=== PATIENT | female | born 1980 | race Hispanic/Latino ===

== ENCOUNTER → 2023-10-02 | Emergency (ER) | payer OTHER ==
--- OUTSIDE RECORDS SUMMARY | 2023-10-02 12:19 | XMS REPORT | Clinical Summary ---
Author Name Unknown Organization [facility] Address [address] [place] [address] Care Team Providers Care Employment Advisor Name Role Phone Chelsea Cooney MD Unavailable [phone] Stephany Montano MD Primary Care Prov ider Jerrell-IhMelonie ruiz MD Unavailable [phone] Glenn Callaway MD Unavailable [phone] Naty Morgan MD Unavailable [phone] Abdulaziz Romo MD Unavailable Allergies Active Allergy Reactions Criticality Noted Date Comments Adhesive 07/12/2021 Do not use silk tape Paper tape causes skin tears tegaderm ok Amoxicillin Hives 05/24/2021 Fluconazole Other (See Comments) Medium 06/22/2021 Caused skin to slough from fingers after blisters developed Latex, Natural Rubber Rash Low 10/18/2021 Sulfa (Sulfonamide Antibiotics) Hives 05/24/2021 Medications Medication Sig Dispensed Refills Start Date End Date Status esomeprazole (NexIUM) 20 MG capsule Take 1 capsule (20 mg) by mouth. 0 Active cetirizine (ZyrTEC) 10 mg tablet daily. 0 Active linaCLOtide (Linzess) 290 mcg cap Take 290 mcg by mouth 2 (two) times a week MTH. 0 Active letrozole (Femara) 2.5 mg tabletIndication s:Infiltrating duct carcinoma, NOS of central portion of breast <Female; Left> Take 1 tablet (2.5 mg) by mouth every evening. 90 tablet 3 3 Active ALPRAZolam (XANAX) 0.5 mg tablet Take 1 tablet (0.5 mg) by mouth as needed. 0 Active Lactobacillus acidophilus (PROBIOTIC ORAL) Take 1 tablet by mouth daily. 0 Active doxycycline (VIBRAMYCIN) 100 mg tabletIndication s:Bilateral acquired absence of breast Take 1 tablet (100 mg) by mouth twice daily. 10 tablet 0 3 Active oxyCODONE-acetam inophen (Percocet) 5 mg-325 mg per tabletIndication s:Acquired absence of bilateral breasts and nipples Take 1 tablet by mouth every 8 (eight) hours as needed for severe pain. 40 tablet 0 3 Active celecoxib (CeleBREX) 100 mg capsuleIndicatio ns:Pain associated with breast implant <Initial> Take 1 capsule (100 mg) by mouth twice daily. 30 capsule 0 3 Active gabapentin (NEURONTIN) 300 mg capsuleIndicatio ns:Pain associated with breast implant <Initial> Take 1 capsule (300 mg) by mouth twice daily. 30 capsule 0 3 Active Additional Information Patient not taking.Reason: No longer taking, Reported on 03/27/2023 mupirocin (BACTROBAN) 2% ointmentIndicati ons:Acquired absence of bilateral breasts and nipples Apply topically to affected area(s) twice daily. Apply to surgical incision(s) bid x 5 days. 22 g 0 3 Active doxepin 6 mg tab Take 1 tablet by mouth nightly as needed (sleeping). 0 4 Active atorvastatin (LIPITOR) 10 mg tablet Take 1 tablet (10 mg) by mouth at bedtime. 0 3 Active Ozempic 0.25 mg or 0.5 mg (2 mg/3 mL) pnij Inject 0.5 mg under the skin once a week. 0 4 Active acetaminophen-co deine (TYLENOL #3) 300 mg-30 mg tabletIndication s:Infiltrating duct carcinoma, NOS of central portion of breast <Female; Left>,Fatigue Take 1 tablet by mouth 3 (three) times a day as needed for mild pain. 30 tablet 0 4 Active Lactobacillus acidophilus (PROBIOTIC ORAL) Take by mouth daily. 0 12/21/19 Discontinued(The rapy completed) psyllium, aspartame, (METAMUCIL) 3.4 g packet Take by mouth daily. 0 11/07/19 23 Discontinued ondansetron (ZOFRAN) 8 mg tabletIndication s:Infiltrating duct carcinoma, NOS of central portion of breast <Female; Left> Take 0.5 tablets (4 mg) by mouth every 6 (six) hours as needed for nausea or vomiting. 40 tablet 1 2 11/07/19 Discontinued zolpidem (AMBIEN) 5 mg tablet Take 1 tablet (5 mg) by mouth nightly as needed. 0 09/19/19 24 Discontinued(Oth er/Not Applicable) prochlorperazine (Compazine) 10 mg tabletIndication s:Infiltrating duct carcinoma, NOS of central portion of breast <Female; Left> Take 1 tablet (10 mg) by mouth every 8 (eight) hours. 60 tablet 1 2 11/07/19 Discontinued venlafaxine (Effexor XR) 37.5 mg 24 hr capsuleIndicatio ns:Infiltrating duct carcinoma, NOS of central portion of breast <Female; Left> Take 1 capsule (37.5 mg) by mouth every morning. 30 capsule 2 2 11/07/19 Discontinued tamoxifen (NOLVADEX) 20 mg tabletIndication s:Infiltrating duct carcinoma, NOS of central portion of breast <Female; Left> Take 1 tablet (20 mg) by mouth daily. 90 tablet 3 2 02/01/20 23 Discontinued baclofen (LIORESAL) 10 mg tabletIndication s:Chronic pain Take 1 tablet (10 mg) by mouth every 8 (eight) hours as needed for muscle spasms (pain). 60 tablet 0 2 11/07/19 Discontinued celecoxib (CeleBREX) 100 mg capsuleIndicatio ns:Chronic pain Take 1 capsule (100 mg) by mouth twice daily. 20 capsule 0 2 11/07/19 23 Discontinued gabapentin (NEURONTIN) 400 mg capsule as needed. 0 3 02/28/20 23 Discontinued(Reo rder) baclofen (LIORESAL) 10 mg tablet as needed. 0 3 02/28/20 23 Discontinued(Not Applicable) cloNIDine (CATAPRES-TTS) 0.1 mg/24 hr transdermal patch 0 3 02/28/20 23 Discontinued(Not Applicable) acetaminophen-co deine (Tylenol-Codeine #3) 300 mg-30 mg tabletIndication s:Bilateral acquired absence of breast Take 1 tablet by mouth 3 (three) times a day as needed for moderate pain. 10 tablet 0 3 02/28/20 23 Discontinued(The rapy completed) oxyCODONE-acetam inophen (Percocet) 5 mg-325 mg per tabletIndication s:Acquired absence of bilateral breasts and nipples Take 1 tablet by mouth every 6 (six) hours as needed for severe pain. 2 tablet 0 3 02/28/20 23 Discontinued(Reo rder) Active Problems Problem Noted Date Diagnosed Date Dehiscence of external surgical incision wound 0 10/16/2021 Overview: Added automatically from request for surgery [id number] Bilateral acquired absence of breast 08/17/2021 Tobacco dependence syndrome 06/17/2021 Adjustment disorder with anxiety 06/15/2021 Infiltrating duct carcinoma of central 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 05/24/2021 Cancer Staging:Clinical stage from 06/07/2021:Stage IIA(cT3, cN0, cM0, G1, ER+, WA+, HER2-) - Signed by Stephany Montano MD on 07/23/2021 Pathologic stage from 07/23/2021:Stage IA(pT1a, pN0, cM0, G2, ER+, WA+, HER2-) - Unsigned Encounters Date Type Department Care Team Description 09/19/2023 12:20 PM PREVENTIVE MAINTENANCE ENGINEER Follow-Up MD Monique in [place] - Breast Medical Oncology [facility] [address] [place] [id number] Henok Azar APRN Nwosu-Melonie Bahena MD Infiltrating duct carcinoma of central 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 (Primary Dx); Fatigue 09/19/2023 Travel 06/20/2023 8:30 AM CDT Clinical Support [facility] 0 [facility], Floor 7 [place] [address] Glenn Callaway MD Jones, Alemayehu T, LAc Menopausal flushing (Primary Dx); Post-mastectomy pain; Other fatigue; Adjustment disorder with anxiety; Peripheral neuralgia 06/20/2023 Travel 06/11/2023 11:00 AM CDT Telemedicine [facility] [address] [place] [address], [facility] 7 [place] [address] Glenn Callaway MD Post-mastectomy pain (Primary Dx); Headache, not otherwise specified; Menopausal flushing; Other fatigue; Adjustment disorder with anxiety; Peripheral neuralgia 06/10/2023 [facility] [address] [place] [address], [facility] 7 [place] [address] Payal Alfonso RN 03/27/2023 8:00 AM CDT Office [facility] [address] [place] [address], 5th [place] [address] Jeffery Saldana MD Bilateral acquired absence of breast 03/27/2023 Travel 02/28/2023 Orders Only [facility] [address] [place] [address], 5th [place] [address] Yasmin Nguyen PA Acquired absence of bilateral breasts and nipples (Primary Dx) 02/27/2023 12:00 PM CDT Follow-Up MD Monique in [place] - Pain Medicine [facility] [address] [place] [address] Be Boo MD Pain associated with breast implant <Initial> (Primary Dx); Chronic pain; Acquired absence of bilateral breasts and nipples 02/27/2023 Travel 02/26/2023 10:15 AM CDT Anesthesia Event MAIN OR [address] [place] [address] Nicole Chung MD 02/26/2023 10:00 AM CDT - 02/26/2023 2:00 PM CDT Surgery MAIN OR [address] [place] [address] Jeffery Saldana MD REVISION OF RECONSTRUCTED BREAST 02/26/2023 7:50 AM CDT - 02/26/2023 3:32 PM CDT Hospital Encounter MAIN OR [address] [place] [address] Jeffery Saldana MD Bilateral acquired absence of breast (Primary Dx) Discharge Disposition: Home 02/26/2023 Orders Only [facility] [address] [place] [address], 5th [place] [address] Alex Dykes MD Acquired absence of bilateral breasts and nipples (Primary Dx) 02/26/2023 Travel 02/25/2023 11:59 PM CDT Anesthesia Event [facility] [address] [place] [address], [address] [place] [address] Trevin Fletcher II, UTILITY AGENT 02/25/2023 4:30 PM CDT POEM Appointments [facility] [address] [place] [address], [address] [place], [place] [address] [address] Yasmin Nguyen PA Pre operative laboratory examination (Primary Dx); Bilateral acquired absence of breast 02/25/2023 10:03 AM CDT - 02/25/2023 11:59 PM CDT Hospital Encounter [facility] [address] [place] [address] Yasmin Nguyen PA Bilateral acquired absence of breast; Pre operative laboratory examination Discharge Disposition: Home 02/25/2023 9:15 AM CDT Office Visit [facility] [address] [place] [address], 5th [place] [address] Jeffery Saldana MD Bilateral acquired absence of breast 02/25/2023 Travel 02/24/2023 Orders Only MD Monique in [place] - Pain Medicine [address] [facility] [address] [place] [address] Pomer, 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 May, asbestos 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 pain (Primary Dx) 01/31/2023 8:40 AM CDT Follow-Up MD [facility] in [facility] Breast Medical Oncology [address] [place] [address] Melonie Ferrer MD Infiltrating duct carcinoma of central 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 (Primary Dx); Headache, not otherwise specified 01/31/2023 8:00 AM CDT Follow-Up MD Monique in [place] - Breast Surgery Oncology [address] [place] [address] Stephany Montano MD Infiltrating duct carcinoma, NOS of central portion of breast <Female; Left> 01/31/2023 Travel 01/30/2023 Orders Only MD Monique in [facility] Oncology [address] [place] [address] Henok Azar APRN 12/20/2022 8:40 AM CDT Follow-Up MD Monique in [facility] Oncology [address] [place] [address] Melonie Ferrer MD Infiltrating duct carcinoma, NOS of central portion of breast <Female; Left> (Primary Dx); Menopausal flushing 12/20/2022 Travel 11/07/2022 8:15 AM PREVENTIVE MAINTENANCE ENGINEER Follow-Up [facility] [address] [place] [address], 5th [place] [address] Jeffery Saldana MD Acquired absence of bilateral breasts and nipples 11/07/2022 Prep for Surgery [facility] [address] [place] [address], 5th [place] [address] Yasmin Nguyen PA Bilateral acquired absence of breast (Primary Dx) 11/07/2022 Travel after 10/02/2022 Surgical History Surgery Date Site/Laterality Comments HYSTERECTOMY 09/08/2015 - 09/07/2016 COLONOSCOPY BREAST CYST EXCISION Left FINGER SURGERY 09/08/2005 - 09/07/2006 Right Right ring finger WA MASTECTOMY SIMPLE COMPLETE 07/12/2021 Bilateral Procedure: SKIN SPARING TOTAL MASTECTOMY; Surgeon: Stephany Montano MD; Location: MAIN OR; Service: BREAST Medical devices from this surgery are in the Medical Devices section. WA INTRAOP SENTINEL LYMPH NODE ID W/DYE INJECTION 07/12/2021 Left Procedure: INTRAOPERATIVE LYMPHATIC MAPPING; Surgeon: Stephany Montano MD; Location: MAIN OR; Service: BREAST Medical devices from this surgery are in the Medical Devices section. WA BX/EXC LYMPH NODE OPEN DEEP AXILLARY NODE 07/12/2021 Axilla/Left Procedure: SENTINEL NODE BIOPSY - AXILLA; Surgeon: Stephany Montano MD; Location: MAIN OR; Service: BREAST Medical devices from this surgery are in the Medical Devices section. WA TISSUE HEARING AID ASSEMBLY SUPERVISOR PLACEMENT BREAST RECONSTRUCTION 07/12/2021 Breast/Bilateral Procedure: RECONSTRUCTION OF BREAST WITH TISSUE HEARING AID ASSEMBLY SUPERVISOR; Surgeon: Abdulaziz Romo MD; Location: MAIN OR; Service: PLS - PLASTIC SURGERY Medical devices from this surgery are in the Medical Devices section. WA IMPLNT BIO IMPLNT FOR SOFT TISSUE REINFORCEMENT 07/12/2021 Breast/Bilateral Procedure: IMPLANTATION OF BIOLOGIC IMPLANT (EG, ACELLULAR DERMAL MATRIX) FOR SOFT TISSUE REINFORCEMENT; Surgeon: Abdulaziz Romo MD; Location: MAIN OR; Service: PLS - PLASTIC SURGERY Medical devices from this surgery are in the Medical Devices section. MASTECTOMY Bilateral WA BREAST RECONSTRUCTION W/FREE FLAP 10/18/2021 Abdomen/Bilateral Procedure: RECONSTRUCTION OF BREAST WITH FREE FLAP; Surgeon: Jeffery Saldana MD; Location: MAIN OR; Service: PLS - PLASTIC SURGERY Medical devices from this surgery are in the Medical Devices section. WA REMOVAL TISSUE HEARING AID ASSEMBLY SUPERVISOR W/O INSERTION IMPLANT 10/18/2021 Breast/Bilateral Procedure: REMOVAL OF TISSUE HEARING AID ASSEMBLY SUPERVISOR; Surgeon: Jeffery Saldana MD; Location: MAIN OR; Service: PLS - PLASTIC SURGERY Medical devices from this surgery are in the Medical Devices section. WA NEGATIVE PRESSURE WOUND THERAPY DME <= 50 SQ CM 10/18/2021 Abdomen/N/A Procedure: NEGATIVE PRESSURE WOUND THERAPY (WOUND VAC); Surgeon: Jeffery Saldana MD; Location: MAIN OR; Service: PLS - PLASTIC SURGERY Medical devices from this surgery are in the Medical Devices section. OOPHORECTOMY BILATERAL 05/30/2022 WA REVISION OF RECONSTRUCTED BREAST 06/28/2022 Breast/Right Procedure: REVISION OF RECONSTRUCTED BREAST; Surgeon: Jeffery Saldana MD; Location: MAIN OR; Service: PLS - PLASTIC SURGERY WA GRAFTING OF AUTOLOGOUS FAT BY LIPO 50 CC OR LESS 06/28/2022 Bilateral Procedure: GRAFTING OF AUTOLOGOUS FAT HARVESTED BY LIPOSUCTION TECHNIQUE TO BREASTS; Surgeon: Jeffery Saldana MD; Location: MAIN OR; Service: PLS - PLASTIC SURGERY WA REPAIR INTERMEDIATE S/A/T/E 2.5 CM/< 06/28/2022 Bilateral Procedure: INTERMEDIATE REPAIR OF WOUND OF TRUNK; Surgeon: Jeffery Saldana MD; Location: MAIN OR; Service: PLS - PLASTIC SURGERY WA REVISION OF RECONSTRUCTED BREAST 02/26/2023 Breast/Bilateral Procedure: REVISION OF RECONSTRUCTED BREAST; Surgeon: Jeffery Saldana MD; Location: MAIN OR; Service: PLS - PLASTIC SURGERY Medical devices from this surgery are in the Medical Devices section. WA GRAFTING OF AUTOLOGOUS FAT BY LIPO 50 CC OR LESS 02/26/2023 Right Procedure: GRAFTING OF AUTOLOGOUS FAT HARVESTED BY LIPOSUCTION TECHNIQUE TO BREASTS; Surgeon: Jeffery Saldana MD; Location: MAIN OR; Service: PLS - PLASTIC SURGERY Medical devices from this surgery are in the Medical Devices section. WA BREAST AUGMENTATION WITH IMPLANT 02/26/2023 Breast/Bilateral Procedure: AUGMENTATION MAMMOPLASTY WITH PROSTHETIC IMPLANT; Surgeon: Jeffery Saldana MD; Location: MAIN OR; Service: PLS - PLASTIC SURGERY Medical devices from this surgery are in the Medical Devices section. Medical History Medical History Date Comments Multiple cysts of breast Gastroesophageal reflux disease Anxiety depression Recurrent urinary tract infection Family History Medical History Relation Name Comments Throat cancer Father TOB+Doing well Breast cancer Maternal Aunt 1 dx late 50s early 60sS/p chemotherapy, radiation Cervical cancer Paternal Cousin 1 dx ealr y 30s Caught too late Relation Name Status Comments Brother 1 Alive No cancer histo ry Brother 2 Alive No cancer histo ry Daughter Alive Father Alive Maternal Aunt 1 (Age 60s) d. can cer Maternal Aunt 2 Alive No cancer hi story Maternal Aunt 3 Alive No cancer hi story Maternal Aunt 4 Alive No cancer hi story Maternal Aunt 5 Alive No cancer hi story Maternal Cousin n=all mat cousins Alive No canc er history Maternal Grandfather (Age 60s) N o cancer history Maternal Grandmother (Age 70s) D iabetes No cancer Maternal Uncle 1 (Age 65-70) d. unrelated to cancerNo cancer history Maternal Uncle 2 Alive No cancer h istory Mother Alive No cancer histo ryOvaries and uterus intact Breast cysts -once bx benign Niece/Nephew n= all nieces/nephews Alive No cancer history Paternal Aunt 1 Alive No cancer hi story Paternal Aunt 2 Alive No cancer hi story Paternal Aunt 3 Alive No cancer hi story Paternal Aunt 4 Alive No cancer hi story Paternal Aunt 5 Alive No cancer hi story Paternal Aunt 6 Alive No cancer hi story Paternal Cousin 1 (Age 35-37) d. cervical cancer Paternal Cousin 2 n = all pat cousins Alive No cancer history Paternal Grandfather (Age 60s) d . unrelated to cancer Paternal Grandmother (Age 50s) d . unrealted to cancer Paternal Uncle (Age 65-70) d. un related to cancer Unsure Sister 1 Alive Went and got ma mmogram after pt diagnosis - scheduled for breast bx Sister 2 Alive No cancer histo ry Sister 3 Alive No cancer histo ry Son 1 Alive Son 2 Alive Social History Tobacco Use Types Packs/Day Years Used Date Smoking Tobacco: Every Day Electronic cigarette Smokeless Tobacco: Never Tobacco Cessation:Ready to Q uit: Not Asked; Counseling Given: Not Answered Comments:Vaping daily Alcohol Use Standard Drinks/Week Comments Not Currently 5 (1 standard drink = 0.6 oz pur e alcohol) Sex and Gender Information Value Date Recorded Sex Assigned at Female 05/22/2021 11:57 AM CDT Gender Identity Female 05/22/2021 11:57 AM CDT Sexual Orientation Straight 05/22/2021 11 :57 AM CDT Job Start Date Occupation Industry Not on file Not on file Not on file Obstetrics History Para Term AB IAB SAB Ectopic Multiple Livin g Live Births 3 3 Date Outcome GA Total Labor Labor/2nd/3rd Weight Sex Delivery Anes PTL Kitty A1 A5 Name Cl in Para Para Para Comments Menarche age 12 LMP age 36 after hysterectomy Menopausal status unknown Parity age 16 No breast-feeding OCP for <1 year No HRT Last Filed Vital Signs Vital Sign Reading Time Taken Comments Blood Pressure 118/86 09/19/2023 12:39 PM PREVENTIVE MAINTENANCE ENGINEER Pulse 114 09/19/2023 12:39 PM PREVENTIVE MAINTENANCE ENGINEER Temperature 37 C (98.6 F) 09/19/2023 12:39 PM PREVENTIVE MAINTENANCE ENGINEER Respiratory Rate 16 09/19/2023 12:39 PM PREVENTIVE MAINTENANCE ENGINEER Oxygen Saturation 100% 06/20/2023 8:07 AM CDT Inhaled Oxygen Concentration - - Weight 78.1 kg (172 lb 2.9 oz) 09/19/2023 12:39 PM PREVENTIVE MAINTENANCE ENGINEER Height 165 cm (5' 4.96") 02/25/2023 9:02 AM CDT Body Mass Index 28.69 02/25/2023 9:02 AM CDT Plan of Treatment Upcoming Encounters Date Type Department Care Team Description 03/19/2024 2:30 PM CDT Follow-Up MD Monique in [place] - Medical Oncology [address] [facility] [address] [place] [address] Jerrell-Melonie Bahena MD [facility]5 [place] [address] Health Maintenance Due Date Last Done Comments COVID-19 Vaccination (#1) 1984 Medical Devices Implanted Type Area Electrical Appliance Mechanic Device Identifier Shelf Expiration Date Model / Serial / Lot Hc Wayne Memorygel Xtra Sm/Hp Breast Imp 150-790cc - [id number] Implanted:Qty: 1 on 02/26/2023 by Jeffery Sladana MD at [facility] Breast Right: Breast MENTOR JEANNIE 10/15/2025 [id number] / [id number] / [id number] Seismograph Operator Helper Microvascular Anastomotic Device 3.5mm - [id number] Implanted:Qty: 1 on 10/18/2021 by Jeffery Saldana MD at [facility] CardioPulm Left: Breast [employer] 05/10/2026 [id number] / / [id number]- [id number] Alloderm (Rtu) Contour Large Perforated -Medium Thick - [id number] Implanted:Qty: 1 on 07/12/2021 by Abdulaziz Romo MD at [facility] Implant Left: Breast LIFE CELL JEANNIE 02/05/2023 [id number] / / [id number] Procedures Procedure Name Priority Date/Time Associated Diagnosis Comments PATHOLOGY SURGICAL INTERPRETATION Routine 02/26/2023 11:56 AM CDT Bilateral acquired absence of breast AUGMENTATION MAMMOPLASTY WITH PROSTHETIC IMPLANT 02/26/2023 9:47 AM CDT Bilateral acquired absence of breast GRAFTING OF AUTOLOGOUS FAT HARVESTED BY LIPOSUCTION TECHNIQUE TO BREASTS 02/26/2023 9:47 AM CDT Bilateral acquired absence of breast REVISION OF RECONSTRUCTED BREAST 02/26/2023 9:47 AM CDT Bilateral acquired absence of breast TMP INTERPRETATION ANTIBODY SCREEN NEGATIVE Routine 02/25/2023 10:14 AM CDT CLOT EXPIRATION DATE Routine 02/25/2023 10:14 AM CDT ANTIBODY SCREEN Routine 02/25/2023 10:14 AM CDT Pre operative laboratory examination ABORH Routine 02/25/2023 10:14 AM CDT Pre operative laboratory examination FRACTIONATED BILIRUBIN Routine 10:14 AM CDT Bilateral acquired absence of breast TOTAL PROTEIN Routine 02/25/2023 10:14 AM CDT Bilateral acquired absence of breast ASPARTATE AMINOTRANSFERASE Routine 02/25/2023 10:14 AM CDT Bilateral acquired absence of breast ALANINE AMINOTRANSFERASE Routine 023 10:14 AM CDT Bilateral acquired absence of breast ALKALINE PHOSPHATASE Routine 02/25/2023 10:14 AM CDT Bilateral acquired absence of breast ALBUMIN LEVEL Routine 02/25/2023 10:14 AM CDT Bilateral acquired absence of breast CALCIUM LEVEL Routine 02/25/2023 10:14 AM CDT Bilateral acquired absence of breast .GLOMERULAR FILTRATION RATE Routine 02/25/2023 10:14 AM CDT Bilateral acquired absence of breast SERUM CREATININE Routine 02/25/2023 10:1 4 AM CDT Bilateral acquired absence of breast ELECTROLYTE PANEL Routine 02/25/2023 10: 14 AM CDT Bilateral acquired absence of breast BLOOD UREA NITROGEN Routine 02/25/2023 1 0:14 AM CDT Bilateral acquired absence of breast GLUCOSE LEVEL Routine 02/25/2023 10:14 AM CDT Bilateral acquired absence of breast DIFFERENTIAL Routine 02/25/2023 10:14 AM CDT Bilateral acquired absence of breast .CBC Routine 02/25/2023 10:14 AM CDT Bilateral acquired absence of breast TYPE AND SCREEN Routine 02/25/2023 10:14 AM CDT Pre operative laboratory examination HEMOGLOBIN A1C Routine 02/25/2023 10:14 AM CDT Bilateral acquired absence of breast COMPREHENSIVE METABOLIC PANEL Routine 02/25/2023 10:14 AM CDT Bilateral acquired absence of breast COMPLETE BLOOD COUNT W/ DIFFERENTIAL Routine 02/25/2023 10:14 AM CDT Bilateral acquired absence of breast after 10/02/2022 Results * Pathology Surgical Interpretation (02/26/2023 11:56 AM CDT) Submitted Clinical History Bilateral acquired absence of breast [Z90.13] 03/02/2023 7:03 PM CDT [facility] Diagnosis A: Breast, right, right inferior breast skin, excision: Skin and subcutaneous tissue, negative for carcinoma. B: Breast, left, left breast skin, excision: Skin and subcutaneous tissue, negative for carcinoma. 03/02/2023 7:03 PM CDT [facility] Gross Description A: Breast, right, skin, right inferior breast skin --- or 9: Consists of multiple segments of unoriented hagan-white skin with underlying fibrofatty soft tissue aggregating to 8.4 x 4.5 x 0.8 cm. The skin surface grossly unremarkable. Agriculture Worker sections are submitted cassettes A1-A2. DF Cold Ischemia and Fixation Times Do not meet requirements specified in latest version of the ASCO/CAP guidelines. Cold ischemia time: Not documented Fixative: 10% Neutral Buffered Formalin In fixative: Not documented Fixation time: > 6 hours and < 72 hours B: Breast, left, skin, left breast skin --- or 9: Consists of an unoriented segment of hagan-yellow fibrofatty soft tissue and skin measuring 3.5 x 3.5 x 1.4 cm. The skin surface is grossly unremarkable. No lesion is identified. Agriculture Worker sections are submitted in cassette B1. DF Cold Ischemia and Fixation Times Do not meet requirements specified in latest version of the ASCO/CAP guidelines. Cold ischemia time: Not recorded Fixative: 10% Neutral Buffered Formalin In fixative: Not recorded Fixation time: > 6 hours and < 72 hours 03/02/2023 7:03 PM CDT [facility] Disclaimer "Some tests reported here may have been developed and performance characteristics determined by [facility]. These tests have not been specifically cleared or approved by the U.S. Food and Drug Administration. If applicable, controls were reviewed and showed appropriate reactivity." 03/02/2023 7:03 PM CDT [facility] Tissue specimen (specimen) (Breast, Right, Skin) 02/26/2023 11:56 AM CDT 02/26/2023 12:52 PM CDT Tissue specimen (specimen) (Breast, Left, Skin) 02/26/2023 12:12 PM CDT 02/26/2023 12:52 PM CDT Jeffery Saldana MD LAB PATHOLOGY ORDERA BLES Performing Organization Address [facility]/ZIP Co de Phone Number [facility] [id number] [place] [address], * .Serum Creatinine (02/25/2023 10:14 AM CDT) Creatinine 0.73 0.51 - 0.95 mg/dL [facility] Comment:Testing Performed at [facility] Lab Magnetic Testing Technician [facility], [facility] [facility], [address], [place] [address] Blood 02/25/2023 10:1 4 AM CDT 02/25/2023 10:23 AM CDT Yasmin SALAS LAB BLOOD ORDERABLES [address] [place] [address] * (ABNORMAL) .CBC (02/25/2023 10:14 AM CDT) [facility] WBC 5.4 4.0 - 11.0 K/uL [facility] RBC 4.39 4.00 - 5.50 M/uL [facility] Hgb 11.3(L) 12.0 - 16.0 gm/dL [facility] Comment:As part of CBC or as an individual orderable testing performed at [facility], [address] [place] [address], [address], [place] [address] Hct 36.8(L) 37.0 - 47.0 % [facility] Comment:As part of CBC or as an individual orderable testing performed at [facility], [address] [place] [address], [address], [place] [address] MCV 84 82 - 98 fL [facility] MCH 25.7(L) 27.0 - 31.0 pg [facility] MCHC 30.7(L) 31.0 - 36.0 gm/dL [facility] RDW-SD 42.6 35.1 - 46.3 fL [facility] RDW-CV 14.0 12.0 - 15.5 % [facility] Platelet count 329 140 - 440 K/uL [facility] Comment:As part of CBC or as an individual orderable testing performed at [facility], [facility] [facility], [address], [place] [address] MPV 9.7 4.0 - 10.4 fL [facility] INRBC 0.0 <=0.0 % [facility] Comment: The INRBC (instrument NRBC) value reflects the enumeration of nucleated red blood cells contained in a 200uL sample of whole blood analyzed by the instrument. This value may differ from the NRBC value reported in a manual differential, which is based on a 100 cell differential. As part of CBC testing performed at [address] [facility], [address], [place] [address] Blood 02/25/2023 10:1 4 AM CDT 02/25/2023 10:19 AM CDT Yasmin SALAS LAB BLOOD ORDERABLES [facility] [address] [facility] [place] [address] * Clot Expiration Date (02/25/2023 10:14 AM CDT) T & S Expiration 02/28/2023 [facility] Blood 02/25/2023 10:1 4 AM CDT 02/25/2023 10:43 AM CDT Trevin Fletcher II, UTILITY AGENT BLOOD BANK T EST ORDERABLES [facility] Unless otherwise noted, all lab tests performed by: Division of Pathology and Laboratory Medicine [address] [place] [id number] * Glomerular Filtration Rate (02/25/2023 10:14 AM CDT) eGFR 105 >=60 mL/min/1.7 3 sq. m [facility] Comment: The eGFRcr is calculated with the 2020 CKD-EPI creatinine equation using creatinine, patient's age, and sex for adults 18 years of age and older. Other factors, especially muscle mass, may affect accuracy and need to be considered. According to the Kidney Disease: Improving Global Outcomes (KDIGO) CKD Work Group 2012 Clinical Practice Guideline, chronic kidney disease (CKD) is defined as the abnormalities of kidney structure or function, present for more than 3 months, with implications for health. CKD should be classified by cause, GFR category, and albuminuria category. KDIGO guidelines provide the following GFR categories Stage Description GFR mL/min/1.73 m2 G1* Normal or high >= 90 G2* Mildly decreased 60-89 G3a Mildly to moderately decreased 45-59 G3b Moderately to severely decreased 30-44 G4 Severely decreased 15-29 G5 Kidney failure <15 *In the absence of evidence of kidney damage, neither G1 nor G2 fulfill criteria for CKD. Testing Performed at [facility] Lab Magnetic Testing Technician Bl, [address] [facility], [address], [place] [address] Blood 02/25/2023 10:1 4 AM CDT 02/25/2023 10:23 AM CDT Yasmin SALAS LAB BLOOD ORDERABLES Performing Organization Address [facility] Co de Phone Number [address] [place] [address] * Fractionated Bilirubin (02/25/2023 10:14 AM CDT) Pathologist [facility] Bili Total <0.3 <=1.2 mg/dL [facility] Comment: Direct and indirect bilirubin will not be reported when Total bilirubin result is <0.3 mg/dL Indocyanine Green (ICG) may cause falsely elevated bilirubin results. Total and direct bilirubin must not be measured from samples containing indocyanine green. False elevation of total bilirubin can be seen in patients with IgG concentrations above 28 g/L. Testing Performed at [facility] Lab Magnetic Testing Technician [facility], [address] [place] [address], [address], [place] [address] Blood 02/25/2023 10:1 4 AM CDT 02/25/2023 10:23 AM CDT Yasmin SALAS LAB BLOOD ORDERABLES Performing Organization Address [facility] Co de Phone Number [address] [place] [address] * TMP Interpretation Antibody Screen Negative (02/25/2023 10:14 AM CDT) TMP Auto Neg ABSC Interp At the present time, patient plasma shows no evidence of RBC alloantibodi es. [facility] Comment: MD Stacey BOGGS Dictated by: MD Stacey BOGGS Dictated Date/Time: 02.25.2023 21:44 PM CDT Transcribed Date/Time: 02.25.2023 21:44 PM CDT Electronically Signed By: MD Stacey BOGGS on 02.25.2023 21:44 PM Blood 02/25/2023 10:1 4 AM CDT 02/25/2023 10:43 AM CDT Trevin Fletcher II, UTILITY AGENT BLOOD BANK T EST ORDERABLES [facility] Unless otherwise noted, all lab tests performed by: Division of Pathology and Laboratory Medicine [address] [place] [address] * ABORh (02/25/2023 10:14 AM CDT) [facility] ABOR. A POS WI MD [facility] Blood 02/25/2023 10:1 4 AM CDT 02/25/2023 10:43 AM CDT Trevin Camilo Justine II, UTILITY AGENT BLOOD BANK T EST ORDERABLES Performing Organization Address City/[facility]/ZIP Co de Phone Number [facility] Unless otherwise noted, all lab tests performed by: Division of Pathology and Laboratory Medicine [address] [place] [address] * Differential (02/25/2023 10:14 AM CDT) [facility] Neutrophil % 62.2 42.0 - 66.0 % [facility] Comment:As part of Different ial performed at [facility], [address] [place] [address], [address], [place] [address] Lymphocyte % 27.8 24.0 - 44.0 % [facility] Monocyte % 6.5 2.0 - 7.0 % [facility] Eosinophil % 2.4 1.0 - 4.0 % [facility] Basophil % 0.7 0.0 - 1.0 % [facility] IGRE % 0.4 0.0 - 0.4 % [facility] Comment: IGRE % count includes Metamyelocytes, Myelocytes, and Promyelocytes. As part of Differential performed at [facility], [address] [place] [address], [address], [place] [address] Neutrophil Abs 3.35 1.70 - 7.30 K/uL [facility] Lymphocyte Abs 1.50 1.00 - 4.80 K/uL [facility] Monocyte Abs 0.35 0.08 - 0.70 K/uL [facility] Eosinophil Abs 0.13 0.04 - 0.40 K/uL [facility] Basophil Abs 0.04 0.00 - 0.10 K/uL [facility] IG Abs 0.02 0.00 - 0.04 K/uL [facility] Blood 02/25/2023 10:1 4 AM CDT 02/25/2023 10:19 AM CDT Yasmin SALAS LAB BLOOD ORDERABLES [address] [place] [address] * Antibody Screen (02/25/2023 10:14 AM CDT) Pathologist [facility] ABSC. Negative ABSC [facility] Blood 02/25/2023 10:1 4 AM CDT 02/25/2023 10:43 AM CDT Trevin Fletcher II, UTILITY AGENT BLOOD BANK T EST ORDERABLES Performing Organization Address City/[facility]/ZIP Co de Phone Number [facility] Unless otherwise noted, all lab tests performed by: Division of Pathology and Laboratory Medicine [address] [place] [id number] * BUN (02/25/2023 10:14 AM CDT) Pathologist [facility] BUN 23 6 - 23 mg/dL [facility] Comment:Testing Performed at [facility] Lab Magnetic Testing Technician [facility], [address] [place] [address], [address], [place] [address] Blood 02/25/2023 10:1 4 AM CDT 02/25/2023 10:23 AM CDT Yasmin SALAS LAB BLOOD ORDERABLES [address] [place] [address] * ALT (02/25/2023 10:14 AM CDT) ALT 28 <=33 U/L [facility] Comment:Testing Performed at [facility] Lab Magnetic Testing Technician [facility], [address] [place] [address], [address], [place] [address] Blood 02/25/2023 10:1 4 AM CDT 02/25/2023 10:23 AM CDT Yasmin SALAS LAB BLOOD ORDERABLES [facility] [address] [place] [address]. [address] [place] [address] * Aspartate Aminotransferase (02/25/2023 10:14 AM CDT) AST 29 <=32 U/L [facility] Comment:Testing Performed at [facility] Lab Magnetic Testing Technician [facility], [address] [place] [address], [address], [place] [address] Blood 02/25/2023 10:1 4 AM CDT 02/25/2023 10:23 AM CDT Yasmin SALAS LAB BLOOD ORDERABLES Performing Organization Address City/[facility]/ZIP Co de Phone Number [facility] [address] [place] [address]. [address] [place] [address] * Total Protein (02/25/2023 10:14 AM CDT) [facility] Total Protein 7.0 6.4 - 8.3 g/dL [facility] Comment:Testing Performed at [facility] Lab Magnetic Testing Technician [facility], [address] [place] [address], [address], [place] [address] Blood 02/25/2023 10:1 4 AM CDT 02/25/2023 10:23 AM CDT Yasmin SALAS LAB BLOOD ORDERABLES [facility] [address] [place] [address]. [address] [place] [address] * Alkaline Phosphatase (02/25/2023 10:14 AM CDT) Alk Phos 65 35 - 104 U/L [facility] Comment:Testing Performed at [facility] Lab Magnetic Testing Technician Bldg, [address] [facility], [address], [place] [address] Blood 02/25/2023 10:1 4 AM CDT 02/25/2023 10:23 AM CDT Yasmin SALAS LAB BLOOD ORDERABLES [facility] [address] [facility] [place] [address] * (ABNORMAL) Hemoglobin A1c (02/25/2023 10:14 AM CDT) A1C 6.0(H) 4.3 - 5.6 % [facility] Comment: HbA1c values >=6.5% are diagnostic of diabetes mellitus. Diagnosis should be confirmed by repeat testing. Therapeutic Action suggested: >8.0% HbA1c; Goal of therapy: <7.0% HbA1c Blood 02/25/2023 10:1 4 AM CDT 02/25/2023 10:36 AM CDT Narrative Authorizing Provider Result Vincent SALAS LAB BLOOD ORDERABLES Performing Organization Address City/[facility]/ZIP Co de Phone Number [facility] Unless otherwise noted, all lab tests performed by: Division of Pathology and Laboratory Medicine [address] [place] [phone] * (ABNORMAL) Glucose Level (02/25/2023 10:14 AM CDT) Glucose Level 107(H) 70 - 99 mg/dL [facility] Comment: Effective 04/03/16, the glucose reference intervals have been updated based on [place] Diabetes Association guidelines (Standards of Medical Care in Diabetes 2016. Diabetes Care 2016; 39: S13-S22). Fasting blood glucose: Normal: 70-99 mg/dL Impaired fasting glucose (increased risk for diabetes or pre-diabetes): 100- 125 mg/dL Diabetes mellitus: >/=126 mg/dL Random blood glucose: Normal: 70-199 mg/dL Note: Random glucose >100 mg/dL is associated with increased risk for diabetes Testing Performed at [facility] Lab Magnetic Testing Technician [facility], [address] [facility], [address], [place] [address] Blood 02/25/2023 10:1 4 AM CDT 02/25/2023 10:23 AM CDT Yasmin SALAS LAB BLOOD ORDERABLES [facility] [address] [place] [address]. [address] [place] [address] * Calcium Level (02/25/2023 10:14 AM CDT) Calcium Lvl 9.7 8.4 - 10.2 mg/dL [facility] Comment:Testing Performed at [facility] Lab Magnetic Testing Technician [facility], [address] [place] [address], [address], [place] [address] Blood 02/25/2023 10:1 4 AM CDT 02/25/2023 10:23 AM CDT Yasmin SALAS LAB BLOOD ORDERABLES Performing Organization Address City/[facility]/ZIP Co de Phone Number [facility] [address] [place] [address]. [address] [place] [address] * Albumin Level (02/25/2023 10:14 AM CDT) Albumin Lvl 4.4 3.5 - 5.2 gm/dL [facility] Comment:Testing Performed at [facility] Lab Magnetic Testing Technician [facility], [address] [place] [address], [address], [place] [address] Blood 02/25/2023 10:1 4 AM CDT 02/25/2023 10:23 AM CDT Yasmin SALAS LAB BLOOD ORDERABLES [facility] [address] [facility] [place] [address] * Electrolyte Panel (02/25/2023 10:14 AM CDT) Sodium Lvl 140 136 - 145 mEq/L [facility] Comment:Testing Performed at [facility] Lab Magnetic Testing Technician Bldg, [address], [address], [place] [address] Potassium Lvl 4.4 3.5 - 5.1 mEq/L [facility] Comment:Testing Performed at [facility] Lab Magnetic Testing Technician Bldg, [address], [address], [place] [address] Chloride 104 98 - 107 mEq/L [facility] Comment:Testing Performed at [facility] Lab Magnetic Testing Technician Bldg, [address], [address], [place] [address] CO2 27 22 - 29 mEq/L [facility] Comment:Testing Performed at [facility] Lab Magnetic Testing Technician Bldg, [address], [address], [place] [address] Anion Gap 9 4 - 14 mEq/L [facility] Comment:Testing Performed at [facility] Lab Magnetic Testing Technician Bldg, [address], [address], [place] [address] Blood 02/25/2023 10:1 4 AM CDT 02/25/2023 10:23 AM CDT Yasmin SALAS LAB BLOOD ORDERABLES [facility] [address] [place] [address] after 10/02/2022 Advance Directives Latest Code Status on File Code Status Date Activated Date Inactivated Comments Full Code 10/18/2021 5:39 PM 10/22/2021 3:53 PM Code Status History Code Status Date Activated Date Inactivated Comments Full Code 07/12/2021 8:00 PM 07/13/2021 7:50 PM Care Teams Employment Advisor Relationship Specialty Start Date End Date Chelsea Cooney MD [address] [place] [id number] PCP - External Referring Obstetrics/Gynecology 05/21/21 Stephany Montano MD [address] [place] [address] PCP - General Breast Surgery 05/21/21 Melonie Ferrer MD [address] [place] [address] Consulting Physician Breast Medical Oncology 07/24/21 Glenn Callaway MD [address] [place] [phone] Consulting Physician Integrative Medicine 06/11/23 Naty Morgan MD [address] [place] [address] Consulting Physician Psychiatry 06/01/21 Abdulaziz Romo MD [address] [place] [address] Consulting Physician Plastic and Reconstructive Surgery 07/03/21
[2023-10-02 13:36] LABS: Specific Gravity 1.026 (1.005-1.030)
[2023-10-02 13:38] LABS: Specific Gravity 1.026 (1.005-1.030); Urine Bacteria None Seen /HPF (<20); Urine Bilirubin NEGATIVE (Negative); Urine Blood Negative (Negative); Urine Clarity Turbid (Clear); Urine Color Yellow (Yellow); Urine Glucose NEGATIVE (Negative); Urine Mucus 4+ /HPF (None Seen); Urine Protein TRACE (Negative); Urine RBC <5 /HPF (None Seen); Urine Urobilinogen Normal (Normal)
[2023-10-02 14:05] LABS: Absolute Lymphocytes (CBC) 1.1 K/uL (0.7-4.9); Hematocrit 34.4 % (36.0-45.0); Lymphocytes % 25.8 % (15.3-44.8); MCV 79.7 fL (80-100); MPV 7.8 fL (7.6-11.3); Platelets 266 thou/uL (152-406); RBC Red Blood Cell Count 4.32 M/uL (3.86-4.86)
[2023-10-02 14:09] LABS: Protime INR 1.02
[2023-10-02 14:14] LABS: Potassium 3.4 mEq/L (3.5-5.1)
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
[2023-10-02 15:48] VITALS: TEMP 98.1
[2023-10-02 16:01] VITALS: BP 114/78; O2SAT 100
== END ==
LOC: ER 12:15
DX: M54.2 Cervicalgia (principal); M54.50 Low back pain, unspecified; M25.519 Pain in unspecified shoulder; V49.49XA Driver injured in collision with other motor vehicles in traffic accident, initial encounter; F32.A Depression, unspecified; Z88.0 Allergy status to penicillin; Z88.2 Allergy status to sulfonamides
CPT/HCPCS: 85025; 81001; 80048; 36415; 81025; 85610; 85730; 70450; 72125; 71260; 74177; Q9967

== ENCOUNTER 2025-04-19 11:01 | Emergency (ER) | payer OTHER ==
--- OUTSIDE RECORDS SUMMARY | 2025-04-19 11:05 | XMS REPORT | Clinical Summary ---
Author Name Unknown Organization [facility] Address [address] [place] [address] Care Team Providers Care Senior Product Manager Name Role Phone Chelsea Cooney MD Unavailable [phone] Stephany Montano MD Primary Care Prov ider Jerrell-IhMelonie ruiz MD Unavailable [phone] Glenn Callaway MD Unavailable [phone] Naty Morgan MD Unavailable [phone] Abdulaziz Romo MD Unavailable Allergies Active Allergy Reactions Criticality Noted Date Comments Adhesive 07/12/2021 Do not use silk tape Paper tape causes skin tears tegaderm ok Amoxicillin Hives 05/24/2021 Fluconazole Other (See Comments) Medium 06/22/2021 Caused skin to slough from fingers after blisters developed Latex, Natural Rubber Rash Low 10/18/2021 Sulfa (Sulfonamide Antibiotics) Hives 05/24/2021 Medications * This document contains information received from the source organization and may not represent a complete record from that organization. esomeprazole (NexIUM) 20 MG capsule Take 1 capsule (20 mg) by mouth. Active cetirizine (ZyrTEC) 10 mg tablet daily. Active linaCLOtide (Linzess) 290 mcg cap Take 290 mcg by mouth 2 (two) times a week MTH. Active ALPRAZolam (XANAX) 0.5 mg tablet Take 1 tablet (0.5 mg) by mouth as needed. Active Lactobacillus acidophilus (PROBIOTIC ORAL) Take 1 tablet by mouth daily. Active oxyCODONE-aceta minophen (Percocet) 5 mg-325 mg per tabletIndicatio ns:Acquired absence of bilateral breasts and nipples Take 1 tablet by mouth every 8 (eight) hours as needed for severe pain. 40 tablet 3 Active gabapentin (NEURONTIN) 300 mg capsuleIndicati ons:Pain associated with breast implant <Initial> Take 1 capsule (300 mg) by mouth twice daily. 30 capsule 3 Active Additional Information Patient taking differently:300 mg oral2 times daily PRN, neuropathy, Reason: Not effective, Reported on 10/08/2024 doxepin 6 mg tab Take 1 tablet by mouth nightly as needed (sleeping). 4 Active atorvastatin (LIPITOR) 10 mg tablet Take 1 tablet (10 mg) by mouth at bedtime. 3 Active Ozempic 0.25 mg or 0.5 mg (2 mg/3 mL) pnij Inject 0.5 mg under the skin once a week. 4 Active acetaminophen-c odeine (TYLENOL #3) 300 mg-30 mg tabletIndicatio ns:Infiltrating duct carcinoma, NOS of central portion of breast <Female; Left>,Fatigue Take 1 tablet by mouth 3 (three) times a day as needed for mild pain. 30 tablet 4 Active Additional Information Patient not taking.Reason: No longer taking, Reported on 10/08/2024 tamoxifen (NOLVADEX) 20 mg tabletIndicatio ns:Infiltrating duct carcinoma, NOS of central portion of breast <Female; Left> Take 1 tablet (20 mg) by mouth daily. 90 tablet 3 4 Active azelastine (ASTELIN) 137 mcg/spray nasal spray USE 2 SPRAY(S) IN EACH NOSTRIL TWICE DAILY. THIS IS AN ANTIHISTAMINE NASAL SPRAY. Active celecoxib (CeleBREX) 200 mg capsule Take 1 capsule (200 mg) by mouth. 4 Active cloNIDine HCl (CATAPRES) 0.1 mg tablet 5 Active estradiol (ESTRACE) 0.1 mg/g (0.01%) vaginal cream Insert 0.5 g every day by vaginal route at bedtime for 90 days. 4 Active fluticasone propionate (FLONASE) 50 mcg/spray nasal spray USE 2 SPRAY(S) IN EACH NOSTRIL ONCE DAILY Active pantoprazole (PROTONIX) 40 mg EC tablet 4 Active tiZANidine (ZANAFLEX) 2 mg tablet TAKE 1 TABLET BY MOUTH ONCE DAILY AT NIGHT AT BEDTIME FOR 28 DAYS Active methylphenidate HCl 27 mg CR tablet Take 1 tablet (27 mg) by mouth every morning. Active Active Problems Problem Noted Date Diagnosed Date Dehiscence of external surgical incision wound 0 10/16/2021 Overview (10/16/2021): Added automatically from request for surgery [id number] Bilateral acquired absence of breast 08/17/2021 Tobacco dependence syndrome 06/17/2021 Adjustment disorder with anxiety 06/15/2021 Infiltrating duct carcinoma of central 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 05/24/2021 Cancer Staging:Clinical stage from 06/07/2021:Stage IIA(cT3, cN0, cM0, G1, ER+, NM+, HER2-) - Signed by Stephany Montano MD on 07/23/2021 Pathologic stage from 07/23/2021:Stage IA(pT1a, pN0, cM0, G2, ER+, NM+, HER2-) - Unsigned Encounters Date Type Department Care Team Description 04/19/2025 Telephone [facility] [address] [place] [address], 5th [place] [address] Janeth Louis RN 04/18/2025 Orders Only MD [facility] [place] - Breast Surgery Oncology [address] [place] [address] Khloe Hercules PA Infiltrating duct carcinoma of central 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 (Primary Dx); Bilateral acquired absence of breast 10/08/2024 10:30 AM CIRCUIT WALKER Follow-Up MD [facility] in [place] - Medical Oncology [address] [place] [address] [address] [place] [address] Shilpa Galeas APRN Infiltrating duct carcinoma of central 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 NM INTRAOP SENTINEL LYMPH NODE ID W/DYE INJECTION 07/12/2021 Left Procedure: INTRAOPERATIVE LYMPHATIC MAPPING; Surgeon: Stephany Montano MD; Location: MAIN OR; Service: BREAST Medical devices from this surgery are in the Medical Devices section. NM BX/EXC LYMPH NODE OPEN DEEP AXILLARY NODE 07/12/2021 Axilla/Left Procedure: SENTINEL NODE BIOPSY - AXILLA; Surgeon: Stephnay Montano MD; Location: MAIN OR; Service: BREAST Medical devices from this surgery are in the Medical Devices section. NM TISSUE STONE BELT SANDER PLACEMENT BREAST RECONSTRUCTION 07/12/2021 Breast/Bilateral Procedure: RECONSTRUCTION OF BREAST WITH TISSUE STONE BELT SANDER; Surgeon: Abdulaziz Romo MD; Location: MAIN OR; Service: PLS - PLASTIC SURGERY Medical devices from this surgery are in the Medical Devices section. NM IMPLNT BIO IMPLNT FOR SOFT TISSUE REINFORCEMENT 07/12/2021 Breast/Bilateral Procedure: IMPLANTATION OF BIOLOGIC IMPLANT (EG, ACELLULAR DERMAL MATRIX) FOR SOFT TISSUE REINFORCEMENT; Surgeon: Abdulaziz Romo MD; Location: MAIN OR; Service: PLS - PLASTIC SURGERY Medical devices from this surgery are in the Medical Devices section. MASTECTOMY Bilateral NM BREAST RECONSTRUCTION W/FREE FLAP 10/18/2021 Abdomen/Bilateral Procedure: RECONSTRUCTION OF BREAST WITH FREE FLAP; Surgeon: Jeffery Saldana MD; Location: MAIN OR; Service: PLS - PLASTIC SURGERY Medical devices from this surgery are in the Medical Devices section. NM REMOVAL TISSUE STONE BELT SANDER W/O INSERTION IMPLANT 10/18/2021 Breast/Bilateral Procedure: REMOVAL OF TISSUE STONE BELT SANDER; Surgeon: Jeffery Saldana MD; Location: MAIN OR; Service: PLS - PLASTIC SURGERY Medical devices from this surgery are in the Medical Devices section. NM NEGATIVE PRESSURE WOUND THERAPY DME <= 50 SQ CM 10/18/2021 Abdomen/N/A Procedure: NEGATIVE PRESSURE WOUND THERAPY (WOUND VAC); Surgeon: Jeffery Saldana MD; Location: MAIN OR; Service: PLS - PLASTIC SURGERY Medical devices from this surgery are in the Medical Devices section. OOPHORECTOMY BILATERAL 05/30/2022 NM REVISION OF RECONSTRUCTED BREAST 06/28/2022 Breast/Right Procedure: REVISION OF RECONSTRUCTED BREAST; Surgeon: Jeffery Saldana MD; Location: MAIN OR; Service: PLS - PLASTIC SURGERY NM GRAFTING OF AUTOLOGOUS FAT BY LIPO 50 CC OR LESS 06/28/2022 Bilateral Procedure: GRAFTING OF AUTOLOGOUS FAT HARVESTED BY LIPOSUCTION TECHNIQUE TO BREASTS; Surgeon: Jeffery Saldana MD; Location: MAIN OR; Service: PLS - PLASTIC SURGERY NM REPAIR INTERMEDIATE S/A/T/E 2.5 CM/< 06/28/2022 Bilateral Procedure: INTERMEDIATE REPAIR OF WOUND OF TRUNK; Surgeon: Jeffery Saldana MD; Location: MAIN OR; Service: PLS - PLASTIC SURGERY NM REVISION OF RECONSTRUCTED BREAST 02/26/2023 Breast/Bilateral Procedure: REVISION OF RECONSTRUCTED BREAST; Surgeon: Jeffery Saldana MD; Location: MAIN OR; Service: PLS - PLASTIC SURGERY Medical devices from this surgery are in the Medical Devices section. NM GRAFTING OF AUTOLOGOUS FAT BY LIPO 50 CC OR LESS 02/26/2023 Right Procedure: GRAFTING OF AUTOLOGOUS FAT HARVESTED BY LIPOSUCTION TECHNIQUE TO BREASTS; Surgeon: Jeffery Saldana MD; Location: MAIN OR; Service: PLS - PLASTIC SURGERY Medical devices from this surgery are in the Medical Devices section. NM BREAST AUGMENTATION WITH IMPLANT 02/26/2023 Breast/Bilateral Procedure: [...] drink = 0.6 oz pur e alcohol) Comments No Sex and Gender Information Value Date Recorded Sex Assigned at Female 05/22/2021 11:57 AM CDT Legal Sex Female 12:05 PM CDT Gender Identity Female 05/22/2021 11:57 AM CDT Sexual Orientation Straight 05/22/2021 11 :57 AM CDT Occupation Industry Job Start Date Job End Date [employer] Not on file Not on file Not on file Obstetrics History Para Term AB IAB SAB Ectopic Multiple Livin g Live Births 3 3 Date Outcome GA Total Labor Labor/2nd/3rd Weight Sex Type Anes PTL Kitty A1 A5 Name Clin Para Para Para Comments Menarche age 12 LMP age 36 after hysterectomy Menopausal status unknown Parity age 16 No breast-feeding OCP for <1 year No HRT Last Filed Vital Signs Vital Sign Reading Time Taken Comments Blood Pressure 104/72 10/08/2024 10:18 AM CIRCUIT WALKER Pulse 89 10/08/2024 10:18 AM CIRCUIT WALKER Temperature 36.4 °C (97.6 °F) 10/08/2024 10:[address] Respiratory Rate 18 10/08/2024 10:18 AM CIRCUIT WALKER Oxygen Saturation - - Inhaled Oxygen Concentration - - Weight 72.7 kg (160 lb 4.4 oz) 10/08/2024 10:18 AM CIRCUIT WALKER Height - - Body Mass Index 26.87 03/26/2024 2:03 PM CDT Plan of Treatment Upcoming Encounters Date Type Department Care Team (Late st Contact Info) Description 04/22/2025 3:30 PM CDT Follow-Up MD Monique in [place] - Medical Oncology [address] [facility] [address] [place] [address] Shilpa Galeas, TAKER OFF [address] [place] [address] [email or web address] 06/02/2025 10:30 AM CDT Evaluation MD [facility] [place] - Physical Therapy [address] [facility] [address] [place] [address] Khloe Hercules PA [address] [place] [address] [email or web address] Yuliana Lewis, PT [address] [place] [address] [email or web address] Maintenance Due Date Last Done Comments COVID-19 Vaccine (#1) 1984 Pneumococcal Vaccine (2 of 2 - PPSV23, PCV20, or PCV21) 05/24/2024 05/24/2023 Influenza Vaccine (#1) 2025 , 05/24/2023, 08/09/2022, Additional history exists Medical Devices Implanted Type Area Box Covering Machine Operator Device Identifier Shelf Expiration Date Model / Serial / Lot Hc [place] Memorygel Xtra Sm/Hp Breast Imp 150-790cc - [id number] Implanted:Qty: 1 on 02/26/2023 by Jeffery Saldana MD at [facility] Breast Left: Breast MENTOR JEANNIE 11/01/2024 [id number] / [id number] / [id number] Hc [place] Memorygel Xtra Sm/Hp Breast Imp 150-790cc - [id number] Implanted:Qty: 1 on 02/26/2023 by Jeffery Saldana MD at [facility] Breast Right: Breast MENTOR JEANNIE 10/15/2025 [id number] / [id number] / [id number] Molding Engineer Microvascular Anastomotic Device 3.0mm - [id number] Implanted:Qty: 1 on 10/18/2021 by Jeffery Saldana MD at [facility] CardioPulm Right: Breast 3M JEANNIE 05/08/2026 [id number] / / [id number]- [id number] Molding Engineer Microvascular Anastomotic Device 3.5mm - [id number] Implanted:Qty: 1 on 10/18/2021 by Jeffery Saldana MD at [facility] CardioPulm Left: Breast [employer] 05/10/2026 [id number] / / [id number]- [id number] Alloderm (Rtu) Contour Medium Perforated - Medium Thick - [id number] Implanted:Qty: 1 on 07/12/2021 by Abdulaziz Romo MD at [facility] Implant Right: Breast LIFE CELL JEANNIE 02/05/2023 [id number] / / [id number] Alloderm (Rtu) Contour Large Perforated -Medium Thick - [id number] Implanted:Qty: 1 on 07/12/2021 by Abdulaziz Romo MD at [facility] Implant Right: Breast LIFE CELL JEANNIE 02/05/2023 [id number] / / [id number] Alloderm (Rtu) Contour Large Perforated -Medium Thick - [id number] Implanted:Qty: 1 on 07/12/2021 by Abdulaziz Romo MD at [facility] Implant Left: Breast LIFE CELL JEANNIE 02/05/2023 [id number] / / [id number] Alloderm (Rtu) Contour Large Perforated -Medium Thick - [id number] Implanted:Qty: 1 on 07/12/2021 by Abdulaziz Romo MD at [facility] Implant Left: Breast LIFE CELL JEANNIE 02/05/2023 [id number] / / [id number] Insurance [facility] POS OPEN ACCESS Advance Directives * Full Code (Latest Code Status on File) Date Activated Date Inactivated Comments 04/18/2025 12:12 PM Update based on Advanced Directive Documentation * Full Code Date Activated Date Inactivated Comments 10/18/2021 5:39 PM 10/22/2021 3:53 PM * Full Code Date Activated Date Inactivated Comments 07/12/2021 8:00 PM 07/13/2021 7:50 PM Care Teams Senior Product Manager Relationship Specialty Start Date End Date Chelsea Cooney MD [email or web address] PCP - External Referring Obstetrics/Gynecology 05/21/21 Stephany Montano MD [address] [place] [id number] [email or web address] PCP - General Breast Surgery 05/21/21 Melonie Ferrer MD [address] [place] [id number] [email or web address] Consulting Physician Breast Medical Oncology 07/24/21 Glenn Callaway MD [address] [place] [id number] [email or web address] Consulting Physician Integrative Medicine 06/11/23 Naty Morgan MD [address] [place] [id number] [email or web address] Consulting Physician Psychiatry 06/01/21 Abdulaziz Romo MD [address] [place] [id number] [email or web address] Consulting Physician Plastic and Reconstructive Surgery 07/03/21
[2025-04-19 13:09] LABS: Absolute Lymphocytes (CBC) 2.4 K/uL (0.7-4.9); Hematocrit 38.2 % (36.0-45.0); Hemoglobin 12.8 g/dL (12.0-15.0); MCH 31.6 pg (27.0-35.0); MCHC 33.5 g/dL (32.0-36.0); MCV 94.3 fL (80-100); MPV 7.6 fL (7.6-11.3); Nucleated RBC Absolute Count 0.0 (0-0); Nucleated Red Blood Cells % 0.0 % (0-0); RBC Red Blood Cell Count 4.05 M/uL (3.86-4.86); White Blood Count 6.20 thou/uL (4.3-10.9)
[2025-04-19] MEDS ORDERED: ONDANSETRON 4 MG/2 ML VIAL ONE (13:15)
[2025-04-19] MEDS ORDERED: MORPHINE 4 MG/ML SYR ONE (13:15)
[2025-04-19] MEDS ORDERED: NA CHLORIDE 0.9% 1,000 ML ONE (13:16)
--- NOTE | 2025-04-19 13:24 | RAD REPORT ---
EXAMINATION: CT Abdomen Pelvis W Contrast CLINICAL INDICATION: Female, 45 years old. ABD PAIN TECHNIQUE: CT abdomen and pelvis was performed, after the administration of IV contrast, as per [facility]. Axial, sagittal and coronal reconstructions were obtained. One or more of the following dose reduction techniques were used: Automated exposure control, adjustment of the mA and k V according to patient size, and iterative reconstruction. Unless otherwise specified, incidental findings do not require dedicated imaging follow-up. COMPARISON: 01/25/2016. FINDINGS: LOWER CHEST: The visualized lung bases are clear. LIVER: Normal in size and contour. No focal lesion. BILIARY SYSTEM: No suspicious abnormalities. SPLEEN: Normal 1size. No focal lesion. PANCREAS: No mass, ductal dilation, or kortney-pancreatic fluid. ADRENALS: Normal; no mass. KIDNEYS: Normal size and contour. No hydronephrosis. URINARY BLADDER: Unremarkable. GASTROINTESTINAL TRACT: No evidence of free air, significant intra-abdominal free fluid, bowel obstru ction or abscess. APPENDIX: Normal appendix. LYMPH NODES: No lymphadenopathy. MUSCULOSKELETAL: No acute or suspicious osseous abnormality. ADDITIONAL FINDINGS: Surgical clips seen along the anterior abdominal wall. IMPRESSION: No acute or concerning abnormalities seen in the abdomen or pelvis.
[2025-04-19 13:32] LABS: ALT/SGPT 18.0 U/L (13-56); AST/SGOT 11.0 U/L (15-37); Albumin 3.7 g/dL (3.4-5.0); Albumin/Globulin Ratio 1.2 (1.1-1.8); Alkaline Phosphatase 42.0 U/L (45-117); Anion Gap 2.8 mEq/L (5.0-15.0); BUN Blood Urea Nitrogen 22.0 mg/dL (7-18); Globulin 3.0 g/dL (2.3-3.5); Glucose Level 89.0 mg/dL (74-106); Lipase 23.0 U/L (13-75); Potassium 3.8 mEq/L (3.5-5.1)
--- NOTE | 2025-04-19 14:04 | ER ---
Nurse's Notes [facility] Name: Kiah Montgomery Age: 45 yrs Sex: Female : 1980 Arrival Date: 04/19/2025 Time: 11:01 Bed 11 Private MD: Diagnosis: Musculoskeletal pain Presentation: 04/19 11:09 Chief complaint: LUQ pain that radiates to mid back x 3 days. Coronavirus screen: At this time, the client does not indicate any symptoms associated with coronavirus-19. Ebola Screen: No symptoms or risks identified at this time. Initial Sepsis Screen: Does the patient meet any 2 criteria? No. Patient's initial sepsis screen is negative. Does the patient have a suspected source of infection? No. Patient's initial sepsis screen is negative. Risk Assessment: Do you want to hurt yourself or someone else? Patient reports no desire to harm self or others. Onset of symptoms was April 16, 2025. 11:09 Method Of Arrival: Ambulatory hb 11:09 Acuity: JANINE 3 hb Historical: - Allergies: 11:10 Amoxicillin; hb 11:10 Sulfa (Sulfonamide Antibiotics); hb - PMHx: 11:10 Depression; hb Screenin:05 [facility] ED Fall Risk Assessment (Adult) History of falling in the last 3 months, iw including since admission No falls in past 3 months (0 pts) Confusion or Disorientation No (0 pts) Intoxicated or Sedated No (0 pts) Impaired Gait No (0 pts) Mobility Assist Device Used No (0 pt) Altered Elimination No (0 pt) Score/Fall Risk Level 0 - 2 = Low Risk Oriented to surroundings, Maintained a safe environment. Abuse screen: Denies threats or abuse. Denies injuries from another. Nutritional screening: No deficits noted. Tuberculosis screening: Assessment: 13:05 General: Appears in no apparent distress. uncomfortable, Behavior is calm, cooperative. mc7 Pain: Complains of pain in left upper quadrant Pain radiates to back and posterior aspect of left shoulder Pain currently is 8 out of 10 on a pain scale. Pain began 2-3 days ago. Is continuous. Neuro: Level of Consciousness is awake, alert, obeys commands, Oriented to person, place, time, situation. Cardiovascular: Denies chest pain, Patient's skin is warm and dry. Respiratory: Respiratory effort is even, Respiratory pattern is regular. GI: Abdomen is non-distended, Reports upper abdominal pain, Patient currently denies nausea, vomiting. Derm: Skin is intact, is healthy with good turgor. Musculoskeletal: Range of motion: intact in all extremities. Vital Signs: 11:09 BP 110 / 75; Pulse 88; Resp 16; Temp 97.4(TE); Pulse Ox 100% on R/A; Weight 65.77 kg; hb Height 5 ft. 5 in. ; Pain 6/10; 13:32 BP 102 / 79; Pulse 74; mc7 11:09 Body Mass Index 24.13 (65.77 kg, 165.1 cm) hb 11:09 Pain Scale: Adult hb ED Course: 11:03 Patient arrived in ED. mr 11:03 Barb Price PA-C is PHCP. sb4 11:03 Ksenia Gr MD is Attending Physician. sb4 11:10 Triage completed. hb 13:03 CT Abd/Pelvis - IV Contrast Only In Process Unspecified. EDMS 13:05 Arm band placed on. iw 13:13 Alexia Sands, RN is Primary Nurse. iw 14:21 No provider procedures requiring assistance completed. IV discontinued, intact, iw bleeding controlled, No redness/swelling at site. Pressure dressing applied. Administered Medications: 13:28 Drug: Ondansetron IVP 4 mg IVP once; over 2 minutes Route: IVP; Site: right antecubital;iw 14:00 Follow up: Response: No adverse reaction iw 13:28 Drug: morphine IVP or IV 4 mg IVP once over 4 mins Route: IVP; Infused Over: 4 mins; iw Site: right antecubital; 14:15 Follow up: Response: No adverse reaction; Pain is unchanged, physician notified iw 13:28 Drug: NS 0.9% IV 1000 ml IV at 1 bolus Per protocol; to be given as a bolus over 60 iw minutes Route: IV; Rate: 1 bolus; Site: right antecubital; 14:30 Follow up: IV Status: Completed infusion iw 14:20 Drug: HYDROcodone-acetaminophen PO 5 mg-325 mg 2 tabs PO once Route: PO; iw 14:25 Follow up: Response: No adverse reaction; Medication administered at discharge. iw Medication: 13:05 VIS not applicable for this client. iw Outcome: 14:04 Discharge ordered by MD. sal 14:20 Discharged to home ambulatory, 14:20 Condition: good 14:20 Discharge instructions given to patient, Instructed on discharge instructions, follow up and referral plans. Demonstrated understanding of instructions, follow-up care, 14:21 Patient left the ED. iw Signatures: Dispatcher [employer] EDVT Rocky Payal, Reg Reg mr Alexia Sands, RN RN iw Trinh Jimenez, RN RN Ksenia Teague MD MD sp3 Barb Price PA-C PAEstelle sb4 Lisa Khan RN RN mc7
--- NOTE | 2025-04-19 14:04 | EDPHYS ---
Physician Documentation [facility] Name: Kiah Montgomery Age: 45 yrs Sex: Female : 1980 Arrival Date: 04/19/2025 Time: 11:01 Bed 11 Private MD: ED Physician Ksenia Gr HPI: 04/19 13:58 This 45 yrs old Female presents to ER via Ambulatory with complaints of LUQ sp3 Abdominal Pain, Nerve pain. 13:58 45-year-old female with history of depression, breast cancer with bilateral sp3 mastectomies now status post bilateral reconstruction surgeries with last surgical procedure approximately 2 years ago now presents with left-sided upper abdominal pain extending to the under part of her breast radiating around to her back. Patient saw oncologist who thinks it is neurological pain related to her procedure. Patient is having no chest pain or substernal chest pain, shortness of breath or any other symptoms. She did have mild nausea which is resolved. She denies any vomiting, diarrhea, lower abdominal pain, dysuria, urinary frequency, gross visualized hematuria, syncope, near syncope, or any other signs or symptoms on ROS at this time.. Historical: - Allergies: 11:10 Amoxicillin; hb 11:10 Sulfa (Sulfonamide Antibiotics); hb - PMHx: 11:10 Depression; hb ROS: 14:00 Constitutional: Negative for fever, chills, and weight loss, Eyes: Negative for injury, sp3 pain, redness, and discharge, ENT: Negative for injury, pain, and discharge, Neck: Negative for injury, pain, and swelling, Cardiovascular: Negative for chest pain, palpitations, and edema, Respiratory: Negative for shortness of breath, cough, wheezing, and pleuritic chest pain, Back: Negative for injury and pain, MS/Extremity: Negative for injury and deformity, Skin: Negative for injury, rash, and discoloration, Neuro: Negative for headache, weakness, numbness, tingling, and seizure, Psych: Negative for depression, anxiety, suicide ideation, homicidal ideation, and hallucinations, Allergy/Immunology: Negative for hives, rash, and allergies, Endocrine: Negative for neck swelling, polydipsia, polyuria, polyphagia, and marked weight changes, Hematologic/Lymphatic: Negative for swollen nodes, abnormal bleeding, and unusual bruising, 14:00 All other systems are negative, Exam: 14:00 Constitutional: This is a well developed, well nourished patient who is awake, alert, sp3 and in no acute distress. Head/Face: Normocephalic, atraumatic. Eyes: Pupils equal round and reactive to light, extra-ocular motions intact. Lids and lashes normal. Conjunctiva and sclera are non-icteric and not injected. Cornea within normal limits. Periorbital areas with no swelling, redness, or edema. ENT: Nares patent. No nasal discharge, no septal abnormalities noted. External auditory canals are clear. Oropharynx with no redness, swelling, or masses, exudates, or evidence of obstruction, uvula midline. Mucous membranes moist. Neck: Trachea midline, no thyromegaly or masses palpated, and no cervical lymphadenopathy. Supple, full range of motion without nuchal rigidity, or vertebral point tenderness. No Meningismus. Cardiovascular: Regular rate and rhythm with a normal S1 and S2. No gallops, murmurs, or rubs. Normal PMI, no JVD. No pulse deficits. Respiratory: Lungs have equal breath sounds bilaterally, clear to auscultation and percussion. No rales, rhonchi or wheezes noted. No increased work of breathing, no retractions or nasal flaring. Abdomen/GI: Soft, non-tender, with normal bowel sounds. No distension or tympany. No guarding or rebound. No evidence of tenderness throughout. Back: No spinal tenderness. No costovertebral tenderness. Full range of motion. Skin: Warm, dry with normal turgor. Normal color with no rashes, no lesions, and no evidence of cellulitis. Neuro: Awake and alert, GCS 15, oriented to person, place, time, and situation. Cranial nerves II-XII grossly intact. Motor strength 5/5 in all extremities. Sensory grossly intact. Cerebellar exam normal. Normal gait. Psych: Awake, alert, with orientation to person, place and time. Behavior, mood, and affect are within normal limits. 14:00 Chest/axilla: Patient's pain is reproducible on palpating the underside of her reconstructed breast along with her back musculature.. Vital Signs: 11:09 BP 110 / 75; Pulse 88; Resp 16; Temp 97.4(TE); Pulse Ox 100% on R/A; Weight 65.77 kg; hb Height 5 ft. 5 in. ; Pain 6/10; 13:32 BP 102 / 79; Pulse 74; mc7 11:09 Body Mass Index 24.13 (65.77 kg, 165.1 cm) hb 11:09 Pain Scale: Adult hb MDM: 11:04 Medical Screening Exam initiated sb4 14:01 Data reviewed: vital signs, nurses notes, lab test result(s), radiologic studies. ED sp3 course: 45-year-old female with left upper quadrant abdominal pain and pain at the base of her breast on the reconstruction rating around to the back musculature. Differential diagnosis includes musculoskeletal pain, neurologic pain, abdominal pathology, among others. I am not highly suspicious of ACS, PE, TAD or any other critical process at this time. Vital signs are normal. Patient has no acute distress resting comfortably. CT scan of the abdomen pelvis which extend up into the chest is negative. All labs within normal limits. We will safely discharge patient home at this time. UA not obtained however clinically I am not highly suspicious of UTI or pyelonephritis or kidney stone as CT demonstrates no stones. Patient is okay with the plan and states she will follow back up with her oncologist and surgical team.. 14:05 ED course: Patient already has pain medication at home due to her chronic pain. She sp3 will continue that. No new medications needed.. 04/19 11:15 Order name: CBC with Diff; Complete Time: 13:53 sp3 04/19 11:15 Order name: CMP; Complete Time: 13:53 sp3 04/19 11:15 Order name: Lipase; Complete Time: 13:53 sp3 04/19 11:15 Order name: CT Abd/Pelvis - IV Contrast Only; Complete Time: 13:25 sp3 04/19 11:15 Order name: IV Saline Lock; Complete Time: 13:13 sp3 04/19 11:15 Order name: Labs collected and sent; Complete Time: 13:13 sp3 Administered Medications: 13:28 Drug: Ondansetron IVP 4 mg IVP once; over 2 minutes Route: IVP; Site: right antecubital;iw 14:00 Follow up: Response: No adverse reaction iw 13:28 Drug: morphine IVP or IV 4 mg IVP once over 4 mins Route: IVP; Infused Over: 4 mins; iw Site: right antecubital; 14:15 Follow up: Response: No adverse reaction; Pain is unchanged, physician notified iw 13:28 Drug: NS 0.9% IV 1000 ml IV at 1 bolus Per protocol; to be given as a bolus over 60 iw minutes Route: IV; Rate: 1 bolus; Site: right antecubital; 14:30 Follow up: IV Status: Completed infusion iw 14:20 Drug: HYDROcodone-acetaminophen PO 5 mg-325 mg 2 tabs PO once Route: PO; iw 14:25 Follow up: Response: No adverse reaction; Medication administered at discharge. iw Disposition Summary: 04/19/25 14:04 Discharge Ordered Notes: Location: Home sp3 Condition: Stable sp3 Diagnosis - Musculoskeletal pain sp3 Followup: sp3 - With: Private Physician - When: Upon discharge from the Emergency Department - Reason: Continuance of care Discharge Instructions: - Discharge Summary Sheet sp3 - Chest Wall Pain sp3 Forms: - Medication Reconciliation Form sp3 - Antibiotic Education sp3 - Prescription Opioid Use sp3 - Patient Portal Instructions sp3 - Leadership Thank You Letter sp3 Signatures: Dispatcher [employer] Alexia Conner, RN RN iw Trinh Jimenez RN RN Ksenia Gr MD MD sp3 Barb Price PA-C PA-C sb4 Corrections: (The following items were deleted from the chart) 11:15 11:15 CBC+H.LAB.BRZ ordered. EDMS EDMS 11:15 11:15 COMPREHENSIVE METABOLIC PANEL+C.LAB.BRZ ordered. EDMS EDMS 11:15 11:15 LIPASE+C.LAB.BRZ ordered. EDMS EDMS 11:15 11:15 Test, Urine+UC.LAB.BRZ ordered. EDMS EDMS 11:15 11:15 UA Rfx Fernando Cult if indicated+U.LAB.BRZ ordered. EDMS EDMS
[2025-04-19] MEDS ORDERED: HYDROCODONE/APAP 5/325 MG TAB ONE (14:07)
[2025-04-19 14:44] VITALS: TEMP 98.1
[2025-04-19 14:45] VITALS: BP 139/70; O2SAT 99
== END 2025-04-19 14:21 | disposition home or self-care (01) ==
LOC: ER 11:01
DX: M79.18 Myalgia, other site (principal); Z85.3 Personal history of malignant neoplasm of breast; Z90.13 Acquired absence of bilateral breasts and nipples
CPT/HCPCS: 96361; 85025; 36415; 83690; 80053; 74177; 96375; 96374; 99284; Q9967; J2405; J7030